=== PATIENT | male | born 1945 | race Caucasian/White ===

== ENCOUNTER 2022-04-05 15:59 | Emergency (ER) | payer MEDICARE ==
[2022-04-05 16:13] VITALS: BP 164/73
--- NOTE | 2022-04-05 16:30 | ED Head Injury ---
General Chief Complaint: Head/Cervical Problems Stated Complaint: BRANCH FELL AND HIT HEAD, Nursing Triage Note: PT REPORTS HE WAS PUSHING SOME TREES AND BRUSH WITH HIS TRACTOR AND ON LIMB APPROXIMATELY 2-3 INCHES IN DIAMETER FLIPPED UP ON TOP OF HIS HEAD. PT HAS AN L SHAPED LACERATION TO THE TOP OF HIS HEAD. History of Present Illness Date Seen by Provider: Apr 05, 2022 Time Seen by Provider: 16:15 Initial Comments 76-year-old male with PMH of CAD/HTN, is here with complaints of a large tree limb that fell on his head today around 14: 30 p.m. resulting in any laceration to the scalp with profuse bleeding. Patient denies LOC, dizziness, blurry vision, neck pain, nausea and vomiting. Patient last had a tetanus shot in October 2012. Allergies and Home Medications Allergies Coded Allergies: No Known Drug Allergies (Unverified , 04/05/22) Patient Home Medication List Home Medication List Reviewed: Yes Review of Systems Review of Systems Constitutional: no symptoms reported, see HPI Eyes: No Symptoms Reported Ears, Nose, Mouth, Throat: see HPI Respiratory: no symptoms reported Cardiovascular: no symptoms reported Gastrointestinal: no symptoms reported Genitourinary: no symptoms reported Musculoskeletal: no symptoms reported Skin: see HPI Psychiatric/Neurological: No Symptoms Reported Endocrine: No Symptoms Reported Hematologic/Lymphatic: No Symptoms Reported Past Vmvfals-Easqjq-Uagthv Hx Patient Social History Tobacco Use?: No Use of E-Cig and/or Vaping dev: No Substance use?: No Alcohol Use?: Yes Alcohol type: Hard Liquor Alcohol Frequency: Daily Pt feels they are or have been: No Immunizations Up To Date First/Initial COVID19 Vaccinat: 2020 Second COVID19 Vaccination Matt: 2020 Physical Exam Vital Signs Vital Signs - First Documented 04/05/22 16:13 Temp 36.4 Pulse 78 Resp 18 B/P (MAP) 164/73 (103) Pulse Ox 98 O2 Delivery Room Air Capillary Refill : Less Than 3 Seconds Height, Weight, BMI Height: '" Weight: lbs. oz. kg; BMI Method: General Appearance: WD/WN, no apparent distress HEENT: PERRL/EOMI, normal ENT inspection, TMs normal, other (Left-sided upper frontal area superiorly, shows an L-shaped laceration that is 3.5 inches in vertical part of the L, and 3 inches on the horizontal part of the L) Neck: non-tender, full range of motion, supple, normal inspection Cardiovascular: regular rate, rhythm Respiratory: chest non-tender, lungs clear Back: normal inspection, no vertebral tenderness Extremities: normal range of motion, non-tender, normal inspection Psychiatric: alert, oriented x 3 [place] Nerves: normal hearing, normal speech, PERRL Motor/Sensory: no motor deficit, no sensory deficit Skin: normal color, warm/dry [place] Coma Score Best Eye Response: (4) Open Spontaneously Best Verbal Response: (5) Oriented Best Motor Response: (6) Obeys Commands [place] Total: 15 Procedures/Interventions Wound Location: Scalp Wound Length (cm): 3.5 (3.5 inches x 3 inches, L-shaped and upper frontal left scalp) Wound's Depth, Shape: superficial, flap Wound Explored: foreign body removed Irrigated w/ Saline (ccs): 100 Betadine Prep?: Yes Anesthesia: 1% Lidocaine (7 mL given prior to placing abilio) Wound Debrided: moderate Staple Repair: Stapler 35W Sterile Dressing Applied?: Yes Progress/Results/Core Measures Results/Orders My Orders Orders - ARNAV FELICIANO MD Ct Head Wo (04/05/22 16:30) Dipht,Pertuss(Acell),Tet Adult (Boostrix (04/05/22 16:45) Medications Given in ED Current Medications Medications Dose Ordered Sig/Janae Route Start Time Stop Time Status Last Admin Dose Admin Diphtheria/ Tetanus/Acell Pertussis 0.5 ml ONCE ONCE IM 04/05/22 16:45 04/05/22 16:46 DC 04/05/22 16:48 0.5 ML Vital Signs/I&O 04/05/22 16:13 Temp 36.4 Pulse 78 Resp 18 B/P (MAP) 164/73 (103) Pulse Ox 98 O2 Delivery Room Air Blood Pressure Mean: 103 Progress Progress Note : Progress Note 1. SCALP LACERATION: - CT HEAD: no acute changes, no fractures or acute bleeds - Copious irrigation of scalp wound with sterile water - 18 abilio placed with improvement and also stopped the bleeding - Tdap STAT in ER . Pt last had it in October 2012 - Prescription for Augmentin bid for 7 days - Tylenol and Ibuprofen prn pain - Advised ice application - Wound care instructions given - Concussion instructions given -Return to ER for staple removal in 10 days -The patient was seen in the ED, and treated appropriately to presentation at a specific point in time. Patient is informed that there is a possibility that disease and illness can evolve and change in acuity rapidly or slowly after patient is discharged from the ER. Precautionary advice given to the patient for immediate return to ER if symptoms worsen or do not resolve, and to seek emergency care sooner rather than later. Pt also advised on the importance of PCP follow up and compliance with management and follow up plan with PCP and/or specialist, as this is part of the management plan. Pt verbally expressed understanding. Diagnostic Imaging Diagonstic Imaging: CT Plain Films/CT/US/NM/MRI: head Comments [facility], [place] NAME: JEREL MEDINA [facility] REC#: [id number] PT STATUS: REG ER : 1945 PHYSICIAN: ARNAV FELICIANO MD ADMIT DATE: 04/05/22/ER FS Signed Date of Exam:04/05/22 CT HEAD WO PROCEDURE: CT head without contrast. TECHNIQUE: Multiple contiguous axial images were obtained through the brain without the use of intravenous contrast. Auto Exposure Controls were utilized during the CT exam to meet ALARA standards for radiation dose reduction. DATE: April 05, 2022. COMPARISON: None. INDICATION: 76-year-old male, injury to head. Headache. FINDINGS: There are skin abilio in the region of the high left frontal scalp. There is underlying soft tissue swelling which is most compatible with soft tissue contusion/hematoma. There are areas of soft tissue gas in this location likely reflecting a penetrating type injury. There is no radiographically visible foreign body outside of the abilio. There is no identified skull fracture. 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 There is a left anterior ethmoidal air cell sinolith. There is no evidence to suggest acute sinusitis. The mastoid air cells and middle ears are well-aerated, bilaterally. There is mild proportional prominence of the ventricles and additional CSF spaces consistent with mild cerebral volume loss. There is no identified abnormal extra-axial fluid collection. There is no evidence of acute intracranial hemorrhage. There is no mass effect or midline shift. IMPRESSION: 1. Soft tissue injury in the region of the left frontal scalp, as above, with contusion/hematoma at this site and no radiographically visible foreign body. 2. No identified acute intracranial abnormality. 3. Mild cerebral volume loss. Dictated by: Dictated on workstation # [id number] Dict: 04/05/221648 Trans: 04/05/221703 PJE [id number] Interpreted by: ROB WAYNE MD Electronically signed by: ROB WAYNE MD 04/05/221703 Departure Impression Primary Impression: Scalp laceration Qualified Codes: S01.01XA - Laceration without foreign body of scalp, initial encounter Additional Impression: Blunt head trauma Qualified Codes: S09.8XXA - Other specified injuries of head, initial encounter Disposition: 01 HOME, SELF-CARE Condition: Improved Departure-Patient Inst. Patient Instructions: Concussion, Adult (DC), Laceration Repair With [facility] ED, Wound Care (DC) Add. Discharge Instructions: - Prescription for Augmentin bid for 7 days - Tylenol and Ibuprofen prn pain - Advised ice application - Wound care instructions given - Concussion instructions given - -Return to ER for staple removal in 10 days All discharge instructions reviewed with patient and/or family. Voiced understanding. Scripts Amoxicillin/Potassium Clav (Amox Tr-K Clv 875-125 mg Tab) 875 Mg-125 Mg Tablet 1 EACH PO BID for 7 Days, #14 TAB Prov: ARNAV FELICIANO MD 04/05/22 ARNAV FELICIANO MD Apr 05, 2022 16:30
[2022-04-05] MEDS ORDERED: TETANUS,DIPTH,PERTUSS P/F (BOOSTRIX) 0.5 ML VIAL IM ONE (16:45)
--- NOTE | 2022-04-05 17:01 | Diagnostic Imaging Report ---
PROCEDURE: CT head without contrast. TECHNIQUE: Multiple contiguous axial images were obtained through the brain without the use of intravenous contrast. Auto Exposure Controls were utilized during the CT exam to meet ALARA standards for radiation dose reduction. DATE: April 05, 2022. COMPARISON: None. INDICATION: 76-year-old male, injury to head. Headache. FINDINGS: There are skin abilio in the region of the high left frontal scalp. There is underlying soft tissue swelling which is most compatible with soft tissue contusion/hematoma. There are areas of soft tissue gas in this location likely reflecting a penetrating type injury. There is no radiographically visible foreign body outside of the abilio. There is no identified skull fracture. 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 There is a left anterior ethmoidal air cell sinolith. There is no evidence to suggest acute sinusitis. The mastoid air cells and middle ears are well-aerated, bilaterally. There is mild proportional prominence of the ventricles and additional CSF spaces consistent with mild cerebral volume loss. There is no identified abnormal extra-axial fluid collection. There is no evidence of acute intracranial hemorrhage. There is no mass effect or midline shift. IMPRESSION: 1. Soft tissue injury in the region of the left frontal scalp, as above, with contusion/hematoma at this site and no radiographically visible foreign body. 2. No identified acute intracranial abnormality. 3. Mild cerebral volume loss. Dictated by: Dictated on workstation # [id number]
[2022-04-05] MEDS ORDERED: AMOX1TAB12 PO (17:24)
== END 2022-04-05 17:26 | disposition home or self-care (01) ==
LOC: ER FS 16:04
DX: S09.90XA Unspecified injury of head, initial encounter (principal); S01.01XA Laceration without foreign body of scalp, initial encounter; Z23 Encounter for immunization; R40.2362 Coma scale, best motor response, obeys commands, at arrival to emergency department; R40.2142 Coma scale, eyes open, spontaneous, at arrival to emergency department; R40.2252 Coma scale, best verbal response, oriented, at arrival to emergency department; W20.8XXA Other cause of strike by thrown, projected or falling object, initial encounter; Y93.89 Activity, other specified
CPT/HCPCS: 12032; 70450; 90471; 90715

== ENCOUNTER 2022-04-07 13:15 | Emergency (ER) | payer MEDICARE ==
[~2022-04-07] VITALS: Ht 162.6 cm; Wt 85.5 kg
[~2022-04-07 13:15] MED LIST: AMOX1TAB12 PO
[2022-04-07 13:16] VITALS: BP 142/85
--- NOTE | 2022-04-07 13:51 | ED Suture Removal/Wound Check ---
Suture/Wound Re-check General Appearance: WD/WN Neuro/Tendon: normal sensation Skin Exam: other (Patient's chevron shaped wound with abilio intact, no swelling redness or signs of infection. Thickened clot is intact.) Physical Exam Vital Signs Vital Signs - First Documented 04/07/22 13:16 Temp 36.2 Pulse 77 Resp 17 B/P (MAP) 142/85 Pulse Ox 97 O2 Delivery Room Air Capillary Refill : General Appearance: WD/WN, no apparent distress HEENT: other (Chevron shaped wound with abilio, wound is clean dry and intact. No cellulitis) Departure Communication (Admissions) Intact wound bleeding resolved prior to ED arrival. Blood pressures controlled. Minimal scalp pain/tenderness not treated at home. Recommendations are to return to the ED in 7 days for staple removal sooner if worsening signs or or headache Impression Primary Impression: Encounter for wound re-check Disposition: 01 HOME, SELF-CARE Condition: Stable Departure-Patient Inst. Referrals: NO,LOCAL PHYSICIAN (PCP/Family) Primary Care Physician Patient Instructions: Wound Care (DC) Add. Discharge Instructions: Continue to keep wound clean and dry and take Tylenol for pain and Augmentin as scheduled. Return to the ED in 7 to 8 days for staple removal. Return sooner if new or concerning symptoms All discharge instructions reviewed with patient and/or family. Voiced understanding. MEREDITH BARRIENTOS DO Apr 07, 2022 13:50
== END 2022-04-07 13:54 | disposition home or self-care (01) ==
LOC: EDUNIT# 13:15 → ER FS 13:17
DX: Z48.02 Encounter for removal of sutures (principal); Z28.310 Unvaccinated for COVID-19